=== PATIENT | female | born 1980 | race Caucasian/White ===

== ENCOUNTER 2017-10-11 20:44 | Observation (INO) ==
[2017-10-11 21:08] LABS: Bilirubin,Urine Negative (Negative); Blood,Urine Negative (Negative); Clarity,Urine Clear (Clear); Color,Urine Yellow (Yellow); Glucose,Urine (UA) Normal (Normal); Ketones,Urine Negative (Negative); Leukocyte Esterase,Urine Negative (Negative); Nitrite,Urine Negative (Negative); Protein,Urine Negative (Neg-Trace); Urobilinogen,Urine Normal (Normal)
[2017-10-11] MEDS ORDERED: Ipratropium/Albuterol Neb 3 ML IH ONE (21:19)
[2017-10-11] MEDS ORDERED: 0.9 % Sodium Chloride 1,000 ML IVC ONE (21:21)
[2017-10-11 21:37] LABS: Basophils % 0.3 %; Eosinophils % 0.3 %; Hematocrit 37.4 % (35.3-44.9); Hemoglobin 12.9 g/dL (11.5-15.4); Immature Granulocytes % 0.2 % (0-4); Immature Platelets 4.6 % (1.1-6.1); Lymphocytes # 1.6 K/mcL (0.6-4.6); Lymphocytes % 12.8 %; Mean Corpuscular HGB Conc 34.5 g/dL (31.6-35.5); Mean Corpuscular Hemoglobin 31.2 pg (28.0-33.3); Mean Corpuscular Volume 90.3 fL (83.0-100.0); Mean Platelet Volume 10.7 fL (9.4-12.4); Monocytes # 0.7 K/mcL (0.0-1.3); Monocytes % 5.5 %; Neutrophils # 9.8 K/mcL (1.6-8.9); Platelet Count 190 K/mcL (140-400); Red Blood Count 4.14 M/mcL (3.82-4.97); Red Cell Distribution Width 12.4 % (11.5-14.5); Segmented Neutrophils % 80.9 %
[2017-10-11 21:51] LABS: BUN/Creatinine Ratio 12 (6-26); Blood Urea Nitrogen 8 mg/dL (6-20); Calcium 8.5 mg/dL (8.6-10.3); Carbon Dioxide 21 mEq/L (23-29); Chloride 112 mEq/L (98-107); Glucose 109 mg/dL (70-105); Osmolality,Calculated 283 (280-300); Potassium 3.5 mEq/L (3.5-5.1); Sodium 137 mEq/L (136-145); eGFR For African Americans > 60 (> 60); eGFR For Non-African Americans > 60 (> 60)
[2017-10-12] MEDS ORDERED: Dexamethasone 4 MG/ML VIAL PO STA (00:06)
--- NOTE | 2017-10-12 00:08 | Emergency Department Note ---
Disposition Clinical Impression: Bronchitis Hypotension Qualifiers: Hypotension type: unspecified hypotension type Qualified Code(s): I95.9 - Hypotension, unspecified Fever Qualifiers: Fever type: unspecified Qualified Code(s): R50.9 - Fever, unspecified Disposition: Admitted As Inpatient Condition: Good General Adult HPI - General Chief complaint: ED Upper Respiratory Infection Stated complaint: fever,cough x3 days Time Seen by Provider: 10/11/17 20:49 Source: patient Mode of arrival: ambulatory Limitations: no limitations Nursing Notes Reviewed: Yes Vital Signs Reviewed: Yes - History of Present Illness HPI Narrative: Patient presents today for evaluation of cough with positive sputum production. Patient states that she has had a cold for the past 2 days. Patient is begun coughing and describes a yellow-green sputum. Patient has had fever. Uses inhalers at home to manage her COPD. Denies chest pain. Patient will undergo further evaluation for bronchitis versus possible pneumonia. Pain Scale: 0 - Related Data Home Medications Medication Instructions Recorded Confirmed Albuterol Sulfate [Ventolin Hfa] 2 puff IH Q4-6H PRN 11/21/15 06/24/17 Budesonide/Formoterol 80/4.5 2 puff IH BIDR 06/24/17 06/24/17 [Symbicort 80/4.5] Previous Rx's Medication Instructions Recorded Docusate [Colace] 100 mg PO BID PRN #30 capsule 06/24/17 Ondansetron ODT [Zofran ODT] 4 mg SL Q6HR PRN #30 tab.rapdis 06/24/17 OxyCODONE/APAP 7.5/325 [Percocet 1 each PO Q4HR PRN #42 tablet 06/25/17 7.5/325 MG] Allergies Allergy/AdvReac Type Severity Reaction Status Date / Time ibuprofen Allergy Hives Verified 10/11/17 20:53 NSAIDS (Non-Steroidal Allergy Hives Verified 10/11/17 20:53 Anti-Inflamma oxcarbazepine Allergy Hives Verified 10/11/17 20:53 [From Trileptal] promethazine [From Phenergan] Allergy Hives Verified 10/11/17 20:53 tramadol Allergy Hives Verified 10/11/17 20:53 Review of Systems: CONSTITUTIONAL: No weight loss, fever, chills, weakness or fatigue. HEENT: Eyes: No visual changes. Ears, Nose, Throat: Nasal congestion, No hearing loss, difficulty talking or unable to swallow. SKIN: No rash or itching. CARDIOVASCULAR: No chest pain, chest pressure or chest discomfort. No palpitations or edema. RESPIRATORY: Cough with positive sputum production GASTROINTESTINAL: No anorexia, nausea, vomiting or diarrhea. No abdominal pain or blood. GENITOURINARY: No burning on urination or hematuria. NEUROLOGICAL: Dizziness No headache, syncope, paralysis, ataxia, numbness or tingling in the extremities. No change in bowel or bladder control. MUSCULOSKELETAL: No muscle pain, back pain, joint pain or stiffness. Past Medical History - Past Medical History Medical history: Reports: asthma, COPD, diabetes, GERD, myocardial infarction Surgical history: Reports: cholecystectomy Psychiatric history: Reports: anxiety, depression HEALTH COMPANION history: Reports: no HEALTH COMPANION history - Social History Smoking Status: Current every day smoker Smokeless Tobacco Status: No Alcohol use: Reports: none Drug use: Reports: none Physical Exam General appearance: NAD, conversant Eyes: anicteric sclerae, moist conjunctivae; PERRL HENT: Atraumatic; oropharynx clear with moist mucous membranes and no mucosal ulcerations Neck: Normal inspection; Trachea midline; FROM, supple Lungs: CTA, with normal respiratory effort and no intercostal retractions CV: RRR, no MRGs Abdomen: Soft, non-tender; no rebound or gaurding Extremities: No peripheral edema or extremity lymphadenopathy Skin: Normal temperature; no rash, ulcers or lesions Psych: Appropriate mood and affect Neuro: alert and oriented to person, place and time - General General appearance: alert, in no apparent distress Course - Reevaluation(s) Reevaluation #1: On reevaluation the patient is afebrile her heart rate has improved to 100. But the patient's blood pressure remains low. At this point the patient has had blood pressures in the past is more significant than previous. In the setting of fever as well as leukocytosis. Patient will be brought into the hospital. Blood cultures are pending. There was concern for possible adrenal insufficiency. A cortisol has been sent. The patient was given dexamethasone for COPD and bronchitis. This was not initially given as a steroid test but is sufficient for her. Cortisol was added to the blood work that she had when she initially got here. - Consultations Consultation #1: Discussed with Dr. Hammond. Pt accepted for admission. Vital Signs Temperature 101.1 F H 10/11/17 20:51 Pulse Rate 128 10/11/17 20:51 Respiratory Rate 16 10/11/17 20:51 Blood Pressure 87/60 10/11/17 20:51 O2 Sat by Pulse Oximetry 96 10/11/17 20:51 Temperature 97.8 F 10/12/17 03:03 Pulse Rate 85 10/12/17 03:03 Respiratory Rate 14 10/12/17 03:03 Blood Pressure 89/60 10/12/17 03:03 O2 Sat by Pulse Oximetry 98 10/12/17 03:03 Oxygen Delivery Oxygen Delivery Room Air Medical Decision Making - Lab Data Result diagrams: 10/11/17 21:28 10/11/17 21:28 Lab Results 10/11/17 10/11/17 10/11/17 Range/Units 21:00 21:00 21:28 WBC 12.1 H (4.3-11.1) K/mcL RBC 4.14 (3.82-4.97) M/mcL Hgb 12.9 (11.5-15.4) g/dL Hct 37.4 (35.3-44.9) % MCV 90.3 (83.0-100.0) fL MCH 31.2 (28.0-33.3) pg MCHC 34.5 (31.6-35.5) g/dL RDW 12.4 (11.5-14.5) % Plt Count 190 (140-400) K/mcL MPV 10.7 (9.4-12.4) fL Immature Gran % 0.2 (0-4) % Seg Neutrophils % 80.9 % Lymphocytes % 12.8 % Monocytes % 5.5 % Eosinophils % 0.3 % Basophils % 0.3 % Neutrophils # 9.8 H (1.6-8.9) K/mcL Lymphocytes # 1.6 (0.6-4.6) K/mcL Monocytes # 0.7 (0.0-1.3) K/mcL Eosinophils # 0.0 (0.0-0.6) K/mcL Basophils # 0.0 (0.0-0.2) K/mcL Immature Plt Fraction 4.6 (1.1-6.1) % Sodium (136-145) mEq/L Potassium (3.5-5.1) mEq/L Chloride (98-107) mEq/L Carbon Dioxide (23-29) mEq/L BUN (6-20) mg/dL Creatinine (0.60-1.20) mg/dL Est GFR ( Amer) (> 60) Est GFR (Non-Af Amer) (> 60) BUN/Creatinine Ratio (6-26) Glucose (70-105) mg/dL Calculated Osmolality (280-300) Calcium (8.6-10.3) mg/dL TSH (0.340-5.600) mcIU/mL Random Cortisol mcg/dl Urine Color Yellow (Yellow) Urine Clarity Clear (Clear) Urine pH 8.0 (5.0-8.0) pH Units Ur Specific [place] 1.020 (1.010-1.025) Urine Protein Negative (Neg-Trace) mg/dL Urine Glucose (UA) Normal (Normal) mg/dL Urine Ketones Negative (Negative) mg/dL Urine Blood Negative (Negative) Urine Nitrite Negative (Negative) Urine Bilirubin Negative (Negative) Urine Urobilinogen Normal (Normal) mg/dL Ur Leukocyte Esterase Negative (Negative) Ur Culture Indicated? NO (NO) Urine Opiates Screen Negative (Yalerj=638) ng/mL Ur Barbiturates Screen Negative (Flccpt=459) ng/mL Ur Phencyclidine Scrn Negative (Cutoff=25) ng/mL Ur Amphetamines Screen Negative (Ozgbmk=1023) ng/mL U Benzodiazepines Scrn Negative (Pwipps=495) ng/mL Urine Cocaine Screen Negative (Cutoff= 300) ng/mL U Marijuana (THC) Screen Negative (Cutoff = 50) ng/mL 10/11/17 10/11/17 10/11/17 Range/Units 21:28 21:28 21:28 WBC (4.3-11.1) K/mcL RBC (3.82-4.97) M/mcL Hgb (11.5-15.4) g/dL Hct (35.3-44.9) % MCV (83.0-100.0) fL MCH (28.0-33.3) pg MCHC (31.6-35.5) g/dL RDW (11.5-14.5) % Plt Count (140-400) K/mcL MPV (9.4-12.4) fL Immature Gran % (0-4) % Seg Neutrophils % % Lymphocytes % % Monocytes % % Eosinophils % % Basophils % % Neutrophils # (1.6-8.9) K/mcL Lymphocytes # (0.6-4.6) K/mcL Monocytes # (0.0-1.3) K/mcL Eosinophils # (0.0-0.6) K/mcL Basophils # (0.0-0.2) K/mcL Immature Plt Fraction (1.1-6.1) % Sodium 137 (136-145) mEq/L Potassium 3.5 (3.5-5.1) mEq/L Chloride 112 H (98-107) mEq/L Carbon Dioxide 21 L (23-29) mEq/L BUN 8 (6-20) mg/dL Creatinine 0.66 (0.60-1.20) mg/dL Est GFR ( Amer) > 60 (> 60) Est GFR (Non-Af Amer) > 60 (> 60) BUN/Creatinine Ratio 12 (6-26) Glucose 109 H (70-105) mg/dL Calculated Osmolality 283 (280-300) Calcium 8.5 L (8.6-10.3) mg/dL TSH 0.534 (0.340-5.600) mcIU/mL Random Cortisol 7.8 mcg/dl Urine Color (Yellow) Urine Clarity (Clear) Urine pH (5.0-8.0) pH Units Ur Specific [place] (1.010-1.025) Urine Protein (Neg-Trace) mg/dL Urine Glucose (UA) (Normal) mg/dL Urine Ketones (Negative) mg/dL Urine Blood (Negative) Urine Nitrite (Negative) Urine Bilirubin (Negative) Urine Urobilinogen (Normal) mg/dL Ur Leukocyte Esterase (Negative) Ur Culture Indicated? (NO) Urine Opiates Screen (Ymyvea=134) ng/mL Ur Barbiturates Screen (Iuvigd=676) ng/mL Ur Phencyclidine Scrn (Cutoff=25) ng/mL Ur Amphetamines Screen (Kpvoiq=3740) ng/mL U Benzodiazepines Scrn (Lhehqh=479) ng/mL Urine Cocaine Screen (Cutoff= 300) ng/mL U Marijuana (THC) Screen (Cutoff = 50) ng/mL Attestation Statement - Attestation Attestation: I examined this patient and my medical decision-making was reviewed with the Resident Physician. I agree with the documented findings, disposition and treatment plan as described except to the extent set forth below. Fever and hypotension. Concern for infection but given chronicity of hypotension I would be concerned about possible endocrine etiologies. Will admit, give steroids, start empiric antibiotics.
[2017-10-12] MEDS ORDERED: Azithromycin 500 MG in D5% in Water 250 ML IVPB ONE (00:38)
[2017-10-12] MEDS ORDERED: 0.9 % Sodium Chloride 1,000 ML IVC ONE (00:38)
[2017-10-12 02:27] LABS: Amphetamine Screen,Urine Negative ng/mL (Cutoff=1000); Barbiturate Screen,Urine Negative ng/mL (Cutoff=200); Benzodiazepines Screen,Urine Negative ng/mL (Cutoff=200); Cannabinoid Screen,Urine Negative ng/mL (Cutoff = 50); Cocaine Screen,Urine Negative ng/mL (Cutoff= 300); Opiate Screen,Urine Negative ng/mL (Cutoff=300); Phencyclidine Screen,Urine Negative ng/mL (Cutoff=25)
[2017-10-12] MEDS ORDERED: Ondansetron 4 MG/2 ML VIAL IVP PRN (02:32)
[2017-10-12] MEDS ORDERED: Naloxone 0.4 MG/ML INJ IVP PRN (02:32)
[2017-10-12] MEDS ORDERED: Ipratropium/Albuterol Neb 3 ML IH PRN (02:36)
[2017-10-12] MEDS ORDERED: Acetaminophen 325 MG TABLET PO PRN (02:40)
[2017-10-12] MEDS ORDERED: 0.9 % Sodium Chloride 1,000 ML IVC SCH (02:45)
--- NOTE | 2017-10-12 02:51 | Internal Med History&Physical ---
Date of Encounter: 10/12/17 Time of Encounter: 01:30 Assessment and Plan (1) Fever Current visit: Yes Status: Acute Given current presentation, concern for viral etiology contributing to patient' s symptoms will continue IV abx and start PO Tamiflu will obtain respiratory infectious panel tylenol prn fever IV fluids f/u blood cultures will closely monitor Qualifiers: Fever type: unspecified Qualified Code(s): R50.9 - Fever, unspecified (2) Bronchitis Current visit: Yes Status: Acute as listed above guaifenesin prn coungh (3) Hypotension Current visit: Yes Status: Acute Pt reports of chronic history of hypotension with baseline SBP in 80s-90s will continue IV fluids continue to closely monitor Qualifiers: Hypotension type: unspecified hypotension type Qualified Code(s): I95.9 - Hypotension, unspecified (4) DVT prophylaxis Current visit: No Status: Resolved early ambulation Internal Medicine - H&P: HPI Chief complaint: fever/body ache Admitted From: Home Plans for Post Hospital Care: Home History of present illness: Ms. Tan is a 37 year old female with pMH of tobacco abuse, asthma who presented to the ER for evaluation of high fever, body aches x 3 days. Patient states she had a fever of 104 at home which prompted her visit to the ER. Reports of runny nose, cough, fever, and generalized weakness for the last 3 days. Denies any sick contact. Reports of chronically having low blood pressure (SBP in 80s-90s). Denies any chest pain, sob, n/v at this time. reports of being an everyday smoker. Past Med Surg Social Fam HX - Past Medical History Medical history: asthma, GERD Psychiatric history: anxiety, depression - Past Surgical History Surgical History: cholecystectomy - Social History Smoking Status: Current every day smoker Smokeless Tobacco Status: No Alcohol use: none Drug use: none Internal Medicine - H&P: Meds Albuterol Sulfate [Ventolin Hfa] 2 puff IH Q4-6H PRN 11/21/15 [History] Budesonide/Formoterol 80/4.5 [Symbicort 80/4.5] 2 puff IH BIDR 06/24/17 [ History] Docusate [Colace] 100 mg PO BID PRN #30 capsule 06/24/17 [Rx] Ondansetron ODT [Zofran ODT] 4 mg SL Q6HR PRN #30 tab.rapdis 06/24/17 [Rx] OxyCODONE/APAP 7.5/325 [Percocet 7.5/325 MG] 1 each PO Q4HR PRN #42 tablet 06/25 [Rx] 3 Allergy/AdvReac Type Severity Reaction Status Date / Time ibuprofen Allergy Hives Verified 10/11/17 20:53 NSAIDS (Non-Steroidal Allergy Hives Verified 10/11/17 20:53 Anti-Inflamma oxcarbazepine Allergy Hives Verified 10/11/17 20:53 [From Trileptal] promethazine [From Phenergan] Allergy Hives Verified 10/11/17 20:53 tramadol Allergy Hives Verified 10/11/17 20:53 All Systems PM: A 10-system review of systems was performed and is negative for pertinent findings except as documented above in the HPI. - Constitutional Constitutional: as per HPI - Constitutional Vitals: Temp Pulse Resp BP Pulse Ox 101.1 F H 87 18 81/53 100 10/11/17 20:51 10/12/17 01:47 10/12/17 01:47 10/12/17 01:47 10/12/17 01:47 General appearance: Present: A&O X 3 (frail), no acute distress, underweight, answers questions appropriately - Head Head exam: Present: atraumatic - Eye Eye exam: Present: conjuntiva pink, sclera anicteric - Respiratory Respiratory exam: Present: CTAB. Absent: respiratory distress, wheezes - Cardiovascular Cardiovascular exam: Present: RRR, +S1, +S2. Absent: diastolic murmur, gallop, rubs, systolic murmur - GI/Abdominal GI/Abdominal exam: Present: normal bowel sounds, soft, no peritoneal signs. Absent: distended, tenderness - Extremities Exam Extremities exam: Present: warm, radial pulses palpable and symmetrical. Absent : calf tenderness, cyanotic, pedal edema - Neurological Exam Neurological exam: Present: alert, oriented X3 Internal Med - H&P Results - Labs CBC & Chem 7: 10/11/17 21:28 10/11/17 21:28
[2017-10-12] MEDS ORDERED: GuaiFENesin Liq 200 MG/10 ML UDC PO PRN (02:57)
[2017-10-12] MEDS ORDERED: cefTRIAXone 1,000 MG in Water for inj. (sterile) 20 ML 10 ML IVP SCH (03:00)
[2017-10-12 04:55] LABS: Adenovirus Not Detected (Not Detect); Bordetella Pertussis Not Detected (Not Detect); Chlamydophila pneumoniae Not Detected (Not Detect); Coronavirus 229E Not Detected (Not Detect); Coronavirus HKU1 Not Detected (Not Detect); Coronavirus NL63 Not Detected (Not Detect); Coronavirus OC43 Not Detected (Not Detect); Human Metapneumovirus Not Detected (Not Detect); Human Rhinovirus/Enterovirus Not Detected (Not Detect); Influenza A Subtype 2009 H1 Not Detected (Not Detect); Influenza A Untypeable Not Detected (Not Detect); Influenza B Not Detected (Not Detect); Mycoplasma pneumoniae Not Detected (Not Detect); Parainfluenza Virus 1 Not Detected (Not Detect); Parainfluenza Virus 2 Not Detected (Not Detect); Parainfluenza Virus 3 Not Detected (Not Detect); Parainfluenza Virus 4 Not Detected (Not Detect); Respiratory Syncytial Virus Not Detected (Not Detect)
[2017-10-12 04:59] LABS: Basophils % 0.1 %; Eosinophils % 0.1 %; Hematocrit 33.9 % (35.3-44.9); Hemoglobin 11.4 g/dL (11.5-15.4); Immature Granulocytes % 0.3 % (0-4); Lymphocytes # 0.8 K/mcL (0.6-4.6); Lymphocytes % 7.9 %; Mean Corpuscular HGB Conc 33.6 g/dL (31.6-35.5); Mean Corpuscular Hemoglobin 30.8 pg (28.0-33.3); Mean Corpuscular Volume 91.6 fL (83.0-100.0); Mean Platelet Volume 11.2 fL (9.4-12.4); Monocytes # 0.3 K/mcL (0.0-1.3); Monocytes % 3.1 %; Neutrophils # 8.5 K/mcL (1.6-8.9); Platelet Count 155 K/mcL (140-400); Red Cell Distribution Width 12.6 % (11.5-14.5); Segmented Neutrophils % 88.5 %
[2017-10-12 05:22] LABS: BUN/Creatinine Ratio 13 (6-26); Blood Urea Nitrogen 7 mg/dL (6-20); Calcium 7.9 mg/dL (8.6-10.3); Carbon Dioxide 21 mEq/L (23-29); Chloride 117 mEq/L (98-107); Glucose 125 mg/dL (70-105); Magnesium 1.9 mg/dL (1.6-2.6); Osmolality,Calculated 291 (280-300); Phosphorous 2.8 mg/dL (2.7-4.5); Potassium 3.7 mEq/L (3.5-5.1); Sodium 141 mEq/L (136-145); eGFR For African Americans > 60 (> 60); eGFR For Non-African Americans > 60 (> 60)
--- NOTE | 2017-10-12 09:57 | Discharge Summary ---
Date of Encounter: 10/12/17 Time of Encounter: 09:30 - Discharge Diagnosis (1) Influenza A Priority: Primary Status: Acute Comments: Patient with 3 day history of body aches, fever with subjective MAXIMUM TEMPERATURE 104 at home, body aches, rhinorrhea, nonproductive cough. Patient was admitted for these symptoms. Respiratory viral panel positive for influenza A. She was admitted overnight given Zithromax and Rocephin 1 dose IV. She is given IV fluids and states that she feels better this morning and that she is ready to go home. She remains afebrile since admission to the emergency department last night. She has no leukocytosis, and her vital signs are stable. Chest x-ray is negative for any acute processes or infiltrates. Patient is hypotensive, however she states this is normal for her, reports systolic normally in the 80s to 90s. Patient has received Tamiflu 1 dose. She will be sent home with the remainder , as well as continue Zithromax for an initial diagnosis of bronchitis and personal history of asthma. Education completed on mask when in public, staying at home and treating symptoms. Patient verbalized understanding. (2) Hypotension Priority: Secondary Status: Acute Qualifiers: Hypotension type: unspecified hypotension type Qualified Code(s): I95.9 - Hypotension, unspecified (3) Fever Priority: Secondary Status: Acute Comments: Fever related to viral infection. She has been afebrile since admission to the emergency department. Symptomatic treatment at home as Tylenol or Motrin, increased fluids. Qualifiers: Fever type: unspecified Qualified Code(s): R50.9 - Fever, unspecified (4) DVT prophylaxis Priority: Secondary Status: Acute Comments: Encourage early ambulation. - Discharge Medications Prescriptions: Acetaminophen [Tylenol] 650 mg PO Q6HR PRN #60 tablet PRN Reason: Fever/pain Azithromycin [Zithromax] 250 mg PO Q24H #4 tablet GuaiFENesin ER [Mucinex] 600 mg PO BID PRN #30 tbbp.12hr PRN Reason: Cough Oseltamivir [Tamiflu] 75 mg PO BID #8 capsule Home Medications: Albuterol Sulfate [Ventolin Hfa] 2 puff IH Q4-6H PRN 11/21/15 [History] Budesonide/Formoterol 80/4.5 [Symbicort 80/4.5] 2 puff IH BIDR 09/27/17 [ History] Docusate [Colace] 100 mg PO BID PRN #30 capsule 06/24/17 [Rx] Ondansetron ODT [Zofran ODT] 4 mg SL Q6HR PRN #30 tab.rapdis 06/24/17 [Rx] OxyCODONE/APAP 7.5/325 [Percocet 7.5/325 MG] 1 each PO Q4HR PRN #42 tablet 06/25 [Rx] Acetaminophen [Tylenol] 650 mg PO Q6HR PRN #60 tablet 10/12/17 [Rx] Azithromycin [Zithromax] 250 mg PO Q24H #4 tablet 10/12/17 [Rx] GuaiFENesin ER [Mucinex] 600 mg PO BID PRN #30 tbbp.12hr 10/12/17 [Rx] Oseltamivir [Tamiflu] 75 mg PO BID #8 capsule 10/12/17 [Rx] Allergies/Adverse Reactions: 3 Allergy/AdvReac Type Severity Reaction Status Date / Time ibuprofen Allergy Hives Verified 10/11/17 20:53 NSAIDS (Non-Steroidal Allergy Hives Verified 10/11/17 20:53 Anti-Inflamma oxcarbazepine Allergy Hives Verified 10/11/17 20:53 [From Trileptal] promethazine [From Phenergan] Allergy Hives Verified 10/11/17 20:53 tramadol Allergy Hives Verified 10/11/17 20:53 Date of admission: 10/12/17 01:45 Primary care physician: Aeblino Mcdaniels MD Discharging clinician: Janie Aponte Anticipated date of discharge: 10/12/17 - Patient Status Disposition: Home, Self-Care Condition: Good Functional capacity at discharge: independent ambulation Overall status at discharge: patient is progressing back to baseline - Discharge Instructions Follow Up With: Abelino Mcdaniels MD [Primary Care Provider] - Additional Instructions: Please follow up with Dr. Mcdaniels in 7-10 days for a recheck. Return to the ER as needed for any other problems or concerns. I have called in your prescriptions to [facility]. Take your medications as directed and finish taking them as scheduled. Stay at home and do not go into public until you are feeling better. If you must go out, wear a mask. Drink plenty of fluids and get plenty of rest. Tylenol or Motrin for body aches or fever. Continue your normal medications. Hospital course: Ms. Tan is a 37 year old female with medical history significant for diabetes and asthma. She was admitted through the emergency department for 3 day history of weakness, body aches, rhinorrhea, nonproductive cough, fever. She was diagnosed with bronchitis and placed on IV Zithromax and Rocephin. Chest x-ray was negative. Respiratory viral panel revealed influenza A positive. She has been started on Tamiflu he received 2 doses in the hospital. Her lungs are clear, she is afebrile, no tachycardia. Her labs are stable and within normal limits, she has no leukocytosis. Patient has history of hypotension with reported systolic blood pressures in the 80s and 90s. Blood pressure has been stable and at her baseline. She reports that after IV fluid hydration she feels better and is ready to go home. I have sent her home with prescriptions for the remainder of her Tamiflu , 8 tablets, Zithromax 4 days for suspected bronchitis, Tylenol prn for body aches and fever, and Mucinex. Patient is stable and appropriate for discharge. Time spent discussing smoking cessation with patient: 3 to 10 minutes - Time Spent with Patient Total time spent providing and/or coordinating discharge services: Less than 30 minutes - Constitutional Vitals: Temp Pulse Resp BP Pulse Ox 98.0 F 83 16 89/60 100 10/12/17 07:47 10/12/17 07:47 10/12/17 07:47 10/12/17 07:47 10/12/17 07:47 General appearance: Present: cachectic, cooperative, A&O X 3 (frail), pleasant, no acute distress, underweight, answers questions appropriately - Head Head exam: Present: atraumatic, normal inspection, normocephalic - Eye Eye exam: Present: normal appearance, conjuntiva pink, sclera anicteric - Neck Neck exam general surgery: Present: normal inspection, supple, trachea midline. Absent: lymphadenopathy, tenderness - Respiratory Respiratory exam: Present: CTAB. Absent: accessory muscle use, chest wall tenderness, decreased breath sounds, rales, respiratory distress, rhonchi, wheezes - Cardiovascular Cardiovascular exam: Present: RRR, +S1, +S2. Absent: bradycardia, diastolic murmur, gallop, rubs, systolic murmur, tachycardia - GI/Abdominal GI/Abdominal exam: Present: normal bowel sounds, soft. Absent: distended, hepatomegaly, tenderness - Extremities Exam Extremities exam: Present: normal capillary refill, normal inspection, warm, radial pulses palpable and symmetrical. Absent: calf tenderness, cyanotic, pedal edema, tenderness - Neurological Exam Neurological exam: Present: alert, oriented X3, no focal deficits. Absent: facial droop, speech deficit - Skin Skin exam: Present: dry, intact, normal color, warm. Absent: rash
[2017-10-12 11:23] VITALS: BP 106/71
[2017-10-13] MEDS ORDERED: Azithromycin 500 MG in D5% in Water 250 ML IVPB SCH (02:00)
== END 2017-10-12 16:20 | disposition home or self-care (01) ==
LOC: 3BNU 20:44 → EMEROO 20:44 → 3BNU 10-12 02:38
PROVIDERS: ADMIT Internal Medicine Hematology & Oncology; ATTEND Registered Nurse